=== PATIENT | male | born 1940 | race Caucasian/White ===

== ENCOUNTER 2017-09-03 07:53 | Inpatient (IN) | payer MEDICARE ==
[~2017-09-03] VITALS: Ht 185.4 cm; Wt 69.9 kg
[2017-09-03] VITALS (13 sets, daily range): BP systolic 120–165; BP diastolic 78–98; BMI 17.8
[2017-09-03 08:33] LABS: BASOPHILS 0.1 % (0-2); EOSINOPHILS 0 % (0-7); HEMATOCRIT 49.1 % (42.0-54.0); HEMOGLOBIN 16.5 g/dL (13.5-17.5); IMMATURE GRANULOCYTES 0.2 % (0-5); LYMPHOCYTES 13.4 % (15-50); MCH 32.4 pg (26.0-34.0); MCHC 33.6 g/dL (31.0-37.0); MCV 96.3 fL (80.0-100.0); MEAN PLATELET VOLUME 10.1 fL (7.4-10.4); MONOCYTES 8.1 % (2-11); NEUTROPHILS 78.2 % (40-80); PLATELET COUNT 249 10x3/uL (130-400); RDW 15.9 % (11.5-14.5); WBC 14.7 10x3/uL (4.8-10.8)
[2017-09-03 08:44] LABS: ALBUMIN 4.1 g/dL (3.4-5.0); ALKALINE PHOSPHATASE 73 U/L (46-116); ALT (SGPT) 18 U/L (10-68); CALC OSMOLALITY 289 mosm/kg (275-300); CALCIUM 9.8 mg/dL (8.5-10.1); CARBON DIOXIDE 26.9 mmol/L (21.0-32.0); CHLORIDE - SERUM 102 mmol/L (98-107); CREATININE - SERUM 1.7 mg/dL (0.6-1.3); GLUCOSE 158 mg/dL (74-106); POTASSIUM - SERUM 3.8 mmol/L (3.5-5.1); PROTEIN - SERUM 8.2 g/dL (6.4-8.2); SODIUM 141 mmol/L (136-145); UREA NITROGEN 30 mg/dL (7-18); eGFR NON AFRICAN AMERICAN 42 mL/min (90-120)
[2017-09-03 08:46] LABS: AMYLASE - SERUM 61 U/L (25-115); DIGOXIN 0.59 ng/mL (0.90-2.00); LIPASE 131 U/L (73-393); MAGNESIUM - SERUM 2.2 mg/dL (1.8-2.4); TROPONIN-I < 0.017 ng/mL (0.000-0.060)
[2017-09-03 10:09] LABS: APPEARANCE HAZY (CLEAR); BILIRUBIN NEGATIVE (NEGATIVE); COLOR YELLOW (YELLOW); GLUCOSE NEGATIVE (NEGATIVE); KETONE NEGATIVE (NEGATIVE); NITRITE POSITIVE (NEGATIVE); PROTEIN TRACE mg/dL (NEGATIVE); UROBILINOGEN NORMAL (NORMAL)
[2017-09-03 10:10] LABS: BACTERIA MODERATE /hpf (NONE SEEN); EPITHELIAL CELLS 0-5 /hpf (0-5); MUCUS <1+ /lpf (NONE SEEN); RED CELLS - URINE 0-5 /hpf (0-5); WHITE CELLS - URINE >50 /hpf (0-5)
[2017-09-03 12:07] LABS: INR 1.07 (0.85-1.17); PROTIME 13.8 SECONDS (11.6-15.0)
[2017-09-03 12:08] LABS: APTT 34.3 SECONDS (22.8-39.4)
--- NOTE | 2017-09-03 12:30 | NUR ---
PT CAME IN FROM ER VIA STRETCHER. NG TUBE TO RIGHT NARE 16INCH. X-RAY ORDERED TO ASSESS PLACEMENT. R-ARM 20 GAUGE PERIPHERAL IV WITH BANABAG INFUSING. CURRENTLY ON ROOM AIR O2 SAT OF 96%. ORAL TEMP 98.0, HR 102, BP 165/89. CONTRACTURE ON LEFT HAND. 1/3 OF DIAPHRAM PARALIZED PEP PATIENT STATEMENT. LUNGS ARE CLEAR. BS HYPOACTIVE X 4 QUADRANTS. PT REPORTS PAIN 4/10 ON ABDOMEN. BED LOW POSITON, CALL LIGHT IN REACH. WILL CONTINUE TO MONITOR.
--- NOTE | 2017-09-03 13:00 | NUR ---
16F NIETO PLACED PER ORDER USING STERILE TECHNIQUE. ENTIRE CONTENTS OF PACKAGE UTILIZED. WILL CONTINUE TO MONITOR.
[2017-09-03] MEDS ORDERED: PLAVIX75 MG PO (13:36)
[2017-09-03] MEDS ORDERED: FLOMAX0.4 MG (13:37)
[2017-09-03] MEDS ORDERED: SUPER B COMPLE150 MG PO (13:39)
[2017-09-03] MEDS ORDERED: LANOXIN250 MCG PO (13:40)
--- NOTE | 2017-09-03 14:35 | NUR ---
#16 NG TUBE INSERTED RIGHT NARE FIRST ATTEMPT WITH EXPLANATION TO PATIENT OF PROCEDURE WELL HIS ROLE TO CONTRIBUTING TO THE EASE OF THE INSERTION. PLACEMENT WAS CHECKED BY DR. BALTAZAR AND MYSELF BY HEARING AIR OVER THE EPIGASTRIUM WITH A STETHOSCOPE, GASTRIC CONTENT RETURN, AND ABSENCE OF BUBBLING WITH END OF TUBE SUBMERGED IN CUP OF WATER. TUBE CONNECTED TO INTERMITTENT WALL SUCTION WITH BRIGHT RED GASTRIC CONTENT NOTED. PATIENT CLEANED UP, GOWN CHANGED, AND A DRIP PAD PLACED UNDER THE NOSE LOOSLY TO CATCH DRIPPING FROM NARE. TUBE SECURED WITH NG TUBE ATTACHMENT DEVICE. PATIENT AND ATTENDING NURSE CAUTIONED TO CHECK FREQUENTLY TO ENSURE NOT PRESSING THE END OF THE NOSE. 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 TUBE CONNECTED TO INTERMITTENT SUCTION AND FOR HOW HE CAN ASSIST WITH THE PROCEDURE.
--- NOTE | 2017-09-03 15:03 | NUR ---
CONSENT FORMS SIGNED FOR PROCEDURE. PRE-OP MEDS GIVEN. PT LEFT FLOOR VIA BED AT THIS TIME.
--- NOTE | 2017-09-03 18:15 | NUR ---
PT ARRIVED TO ROOM VIA BED. PT AROUSABLE, ANSWERS APPROPRIATELY. ON 2L NC, SATS 96%. BP 128/94. HR 122 SINUS TACH. HAS NGT TO RIGHT NARE. PT HAS LEFT SUBCLAVIAN CENTRAL LINE, SL. ALSO PIV TO RIGHT FOREARM. SL. NIETO CATHETER. DARK YELLOW URINE. PT HANDS AND FEET COLD TO TOUCH. WEAK PULSES. DR LICEA IN TO SEE PATIENT. EKG OBTAINED PER REQUEST. WILL BE CONSULTING CARDIOLOGY. PT HAS CARDIAC HX. VERY AUDIBLE MURMUR NOTED.
--- NOTE | 2017-09-03 19:26 | NUR ---
SPOKE WITH DR DALEY. REVIEWED VS AND EKG. ASKED FOR 2.5 IV LOPRESSOR.
--- NOTE | 2017-09-03 19:30 | NUR ---
REC'D TO CARE, MONOGRAM MAKER PER FLOWSHEET. PT REMAINS SLEEPY - S/P EXP LAP. ABD DSG INTACT NOTED. IVF INFUSING TO L TLSC, DSG C/D/I. NIETO CATH PATENT AND DRAINING CLEAR, QUITA URINE. REDNESS TO COCCYX NOTED - WILL CONT Q2H TURN SCHEDULE AT MINIMUM. ORAL CARE PROVIDED. PT COOPERATIVE, BACK TO REST EASILY. SOME SHORT PERIODS OF APNEA NOTED - ALARMS ON. C/L IN REACH.
--- NOTE | 2017-09-03 21:30 | NUR ---
DR. BACH NOTIFIED OF HR AND DIG LEVEL. KATY BLOCK REC'D,
[2017-09-03] MEDS ORDERED: FLOMAX0.4 MG PO (21:43)
[2017-09-03] MEDS ORDERED: URECHOLINE25 MG PO (21:44)
--- NOTE | 2017-09-03 21:45 | NUR ---
SPOKE WITH SON, HOME MED REQ REVIEWED AND PHONE PASSWORD SET UP. UPDATE GIVEN AND QUESTIONS ANSWERED.
--- NOTE | 2017-09-03 22:34 | OP ---
PATIENT NAME: DANITA BALTAZAR MEDICAL RECORD: [id number] :40 LOCATION:[facility] D.2302 ADMISSION DATE:09/03/17 SURGEON: CIRILO ARREOLA MD DATE OF OPERATION: 09/03/2017 SURGEON: Cirilo Arreola MD. PREOPERATIVE DIAGNOSES: 1. Cecal volvulus. 2. Acute abdomen with peritonitis. 3. Acute renal failure. 4. Coronary artery disease. 5. Peripheral arterial disease. 6. History of stroke. POSTOPERATIVE DIAGNOSES: 1. Cecal volvulus. 2. Acute abdomen with peritonitis. 3. Acute renal failure. 4. Coronary artery disease. 5. Peripheral arterial disease. 6. History of stroke. PROCEDURES PERFORMED: 1. Exploratory laparotomy. 2. Ileocecectomy. 3. Left subclavian central venous line. ANESTHESIA: General. COMPLICATIONS: None. SPECIMENS: Terminal ileum and cecum. Case was contaminated. ESTIMATED BLOOD LOSS: 120 cc. OPERATIVE COURSE: After consent was obtained, the patient was taken to the operating room and placed in supine position. Next, general anesthesia was given via endotracheal intubation after a timeout was taken to confirm the correct patient and procedure. Left chest was prepped and draped in typical sterile fashion. Local anesthetic was administered. A left subclavian vein was cannulated in the first pass. The guidewire was placed. The needle was removed. The skin incision was made with 11-blade scalpel. The dilator was passed over the wire in a standard Seldinger fashion. The catheter was then passed over the wire in a standard Seldinger fashion. The catheter was secured to the skin with an 0 nylon suture, a Biopatch and sterile Tegaderm dressing. All 3 ports were aspirated and flushed. At this time, the abdomen was then prepped and draped in typical sterile fashion and Ioban dressing was placed. A lower midline incision was made from the umbilicus to the pubic tubercle with a 10-blade scalpel. Dissection continued to the level of the fascia using electrocautery. The fascia was incised with electrocautery. The peritoneum was grabbed with a hemostat; it was incised with Metzenbaum scissors. Once the peritoneal cavity was visualized, remaining portion of the incision was opened OPERATIVE REPORT [id number] DANITA BALTAZAR with electrocautery. There was marked distention of the terminal small bowel. The small bowel was extracorporealized. The cecum was detorsed in a clockwise position from the left upper quadrant towards the pelvis and extracorporealized, releasing the volvulus. Next, at approximately 10 cm terminal ileum, the mesentery was incised using electrocautery and the terminal ileum was ligated using a linear cutting stapler. Once the hepatic flexure was mobilized and the healthy appearing mid ascending colon was identified. A mesenteric window was then created with the electrocautery. Transection was performed with the linear cutting stapler. The mesentery was divided just in the Harmonic scalpel. The terminal ileum, cecum and proximal ascending colon were sent off the field for permanent pathology. Next, the enterotomies where a functional [id number] and end-to-end anastomosis was created. Enterotomies were made using the electrocautery. The common enterotomy was created with the linear cutting stapler. Common enterotomy was closed with a second firing of the linear cutting stapler. The staple line was imbricated using 2-0 Stratafix suture. The mesentery was closed using 3-0 silk suture. The ileocolonic anastomosis was placed in the right upper quadrant. The abdomen was then irrigated with 3 liters of warm normal saline. Careful inspection of the abdomen was performed. The small bowel was run from the ligament of Treitz to the ileocolonic anastomosis. No evidence of bowel injury. No evidence of bleeding. There was no remaining intraabdominal contamination. At this time, the fascia was closed with #1 looped PDS. Skin was closed with calderon. At the end of the case, all needle and instrument counts were correct. No complications occurred. The patient was extubated and transferred to the PACU in stable condition. TRANSINT:[id number] Voice Confirmation ID: [id number] DOCUMENT ID: [id number] CIRILO ARREOLA MD at 2234 CC: [id number] DICTATION DATE: 09/03/17 173 FINISH REPAIRER: 09/03/172003 ADM IN [facility] [address] [id number]
--- NOTE | 2017-09-03 23:16 | NUR ---
REASSESSMENT PER FLOWSHEET, NO ACUTE CHANGES. PT AWAKENS EASILY, VSS. ABD DSG WITHOUT CHANGE. NIETO CATH PATENT. PT DENIES PAIN OR NEEDS. ORAL CARE PROVIDED. ALARMS ON AND C/L IN REACH.
[2017-09-04] VITALS (24 sets, daily range): BP systolic 132–163; BP diastolic 70–114; Ht 185.4 cm; Wt 69.9 kg
--- NOTE | 2017-09-04 01:05 | NUR ---
RESTING QUIETLY, NO SIGN OF DISTRESS. VSS.
--- NOTE | 2017-09-04 03:15 | NUR ---
REASSESSMENT PER FLOWSHEET. PT AWAKE AND ORIENTED - USING GROUP BILLING COORDINATOR FOR C/O INCISIONAL PAIN. ORAL CARE SWABS IN REACH. C/L IN REACH.
[2017-09-04 05:00] LABS: BASOPHILS 0 % (0-2); EOSINOPHILS 0 % (0-7); HEMATOCRIT 41.4 % (42.0-54.0); HEMOGLOBIN 13.4 g/dL (13.5-17.5); IMMATURE GRANULOCYTES 0.1 % (0-5); LYMPHOCYTES 9.6 % (15-50); MCH 32.1 pg (26.0-34.0); MCHC 32.4 g/dL (31.0-37.0); MEAN PLATELET VOLUME 10.3 fL (7.4-10.4); MONOCYTES 8.3 % (2-11); RBC 4.18 10x6/uL (4.20-6.10); RDW 16.5 % (11.5-14.5)
--- NOTE | 2017-09-04 05:00 | NUR ---
COMPLETE BATH AND LINEN CHANGE DONE. NIETO CARE DONE. SMALL PILLOW PROVIDED TO SPLINT ABD WITH COUGHING. PT USING ENGINE WIPER MORPHINE. SWABS FOR ORAL CARE AT BS. ALARMS ON AND C/L IN REACH.
[2017-09-04 05:14] LABS: PLATELET COUNT 188 10x3/uL (130-400); WBC 9.7 10x3/uL (4.8-10.8)
[2017-09-04 05:35] LABS: CALCIUM 7.9 mg/dL (8.5-10.1); CARBON DIOXIDE 23.4 mmol/L (21.0-32.0); CREATININE - SERUM 1.5 mg/dL (0.6-1.3); MAGNESIUM - SERUM 1.9 mg/dL (1.8-2.4)
--- NOTE | 2017-09-04 06:00 | NUR ---
NO VISITORS. PT RESTING QUIETLY WITH EYES CLOSED.
[2017-09-04 06:06] LABS: ANION GAP 13.4 mmol/L (8-16); DIGOXIN 2.41 ng/mL (0.90-2.00); POTASSIUM - SERUM 4.8 mmol/L (3.5-5.1)
--- NOTE | 2017-09-04 07:51 | NUR ---
DR LICEA HERE DR WESLEY HERE AND PT'S SON HERE. PHYSICIANS SPOKE TO PT AND SON AT BS.
--- NOTE | 2017-09-04 11:46 | NUR ---
PT EVAL DONE, ROM AND PARTIAL BATH AND TOTAL CARE TURN. PT NIVIA WELL USING DRUM TENDER FOR PAIN CONTROL.
[2017-09-05] VITALS (13 sets, daily range): BP systolic 112–152; BP diastolic 57–98
[2017-09-05 04:05] LABS: BASOPHILS 0.2 % (0-2); EOSINOPHILS 0 % (0-7); HEMATOCRIT 40.8 % (42.0-54.0); HEMOGLOBIN 12.9 g/dL (13.5-17.5); IMMATURE GRANULOCYTES 0.3 % (0-5); LYMPHOCYTES 11.5 % (15-50); MCH 32.1 pg (26.0-34.0); MCHC 31.6 g/dL (31.0-37.0); MCV 101.5 fL (80.0-100.0); MEAN PLATELET VOLUME 9.6 fL (7.4-10.4); MONOCYTES 8.3 % (2-11); NEUTROPHILS 79.7 % (40-80); PLATELET COUNT 163 10x3/uL (130-400); RBC 4.02 10x6/uL (4.20-6.10); RDW 16.9 % (11.5-14.5); WBC 10.5 10x3/uL (4.8-10.8)
[2017-09-05 04:22] LABS: BILIRUBIN - TOTAL 0.84 mg/dL (0.2-1.3); CALCIUM 7.8 mg/dL (8.5-10.1); CARBON DIOXIDE 25.4 mmol/L (21.0-32.0); CREATININE - SERUM 1.2 mg/dL (0.6-1.3); PROTEIN - SERUM 6.2 g/dL (6.4-8.2); VANCOMYCIN - TROUGH 16.5 ug/mL (10.0-20.0)
[2017-09-05 04:31] LABS: ALBUMIN 2.5 g/dL (3.4-5.0); ANION GAP 12.5 mmol/L (8-16); POTASSIUM - SERUM 3.9 mmol/L (3.5-5.1)
--- NOTE | 2017-09-05 10:05 | NUR ---
NGT CLAMPED AND PO MEDS GIVEN. PT SWALLOWING W/O PROBLEMS.
[2017-09-05 10:10] LABS: APPEARANCE SLT CLOUDY (CLEAR); BILIRUBIN NEGATIVE (NEGATIVE); COLOR YELLOW (YELLOW); GLUCOSE NEGATIVE (NEGATIVE); KETONE MODERATE mg/dL (NEGATIVE); NITRITE NEGATIVE (NEGATIVE); PROTEIN TRACE mg/dL (NEGATIVE); UROBILINOGEN NORMAL (NORMAL)
[2017-09-05 10:11] LABS: RED CELLS - URINE 0-5 /hpf (0-5)
[2017-09-05 10:12] LABS: WHITE CELLS - URINE >50 /hpf (0-5)
[2017-09-05 10:13] LABS: AMORPHOUS SEDIMENT <1+ /lpf (NONE SEEN); BACTERIA FEW /hpf (NONE SEEN)
--- NOTE | 2017-09-05 14:33 | NUR ---
I spoke with patient's son, Dr. Gottliebing, who is a OBGYN at this hospital. He had questions about acute rehab and also shelter for his father. He asked that I not speak with his father today since he was medicated and would not remember speaking with me. Dr. Tan is very concerned about his father and if he will be able to return to his previous level of independence. Patient was living next door to Dr. Tan and his family and Dr. Tan has been providing care to his father. He stated that he and his eldest brother are considering LTC for their father if he is no longer able to live partially independent any longer. We discussed acute rehab and he asked about the [facility]. They are planning to look into filing for Medicaid the patient and would like to speak with a sales representative printing paper for Medicaid at some point. Patient has order to move to medical floor and I told him a rifle case repairer will follow them through his hospitalization. CM to follow.
--- NOTE | 2017-09-05 14:57 | NUR ---
PT UP TO CHAIR WITH PT, VERY DIFFICULT AND TOTAL LIFT. PT LUE CONTRACTURED AND HE PUSHES TO THAT SIDE.
--- NOTE | 2017-09-05 17:23 | NUR ---
REPORT CALLED TO FLOOR NURSE. WILL TRANSPORT TO ROOM 2236. FAMILY NOTIFIED OF ROOM NUMBER.
--- NOTE | 2017-09-05 18:04 | NUR ---
PATIENT TO ROOM AND NGT TO LIWS. NO COMPLAINTS OR PROBLEMS. IV INTACT. BOTTLE HOUSE PUMPER FOR PAIN. ICE CHIPS GIVEN TO PATIENT. FAMILY AT BEDSIDE. CALL LIGHT WITHIN REACH.
--- NOTE | 2017-09-05 19:41 | NUR ---
RECIEVED RESTING IN BED WITH EYES CLOSED. NO S/S OF DISTRESS OBSERVED. EASILY AROUSES TO VERBAL STIMULI. F/C PATENT WITH DARK YELLOW URINE DRAINING TO BEDSIDE DRAINAGE SYSTEM. VG TUBE TO LEFT NARE WITH LOW INTERMITTEN SUCTION. SCVL TO LEFT UPPER CHEST WITH NS INFUSING AT 100CC/HR. ALSO,HAS A RIGHT POSTERIOR FOREARM SL. LUNG SOUNDS CRACKLE THOUGHT OUT ALL LUNG LUTZ AND HAS RALES IN RIGHT MIDDLE AND LOWER LOBES. ABDOMINAL SURGICAL WOUND FROM BELOW NAVAL TO TOP OF PELVIS HAS 9 LATISHA INTACT.NO REDNESS OR DRAINAGE TO SITE OBSERVED. TELEMETRY IN PLACE AND FUNCTIONING PROPERLY. PULSE BOUNDING AND 111. LEFT HAND CONTRACTED. O2@2 LITERS PER N/C. RESPIRATIONS EVEN AND UNLABORES AT 18.
[2017-09-06] VITALS: BP 127/76; BP 146/77
[2017-09-06 04:00] VITALS: BP 146/77
--- NOTE | 2017-09-06 07:00 | NUR ---
REPORT RECEIVED, ASSUMED CARE OF PT. RESTING, LETHARGIC, ANSWERS QUESTIONS APPROPRIATELY. NGT TO L INTERMMITENT WALL SUCTION IN PLACE. NIETO CATHETER IN PLACE. L SUBCLAVIAN IV INFUSING FLUIDS ORDERED, PATENT, DRSG C/D/I. R FOREARM IV SALINE LOCKED, DRSG C/D/I. VETERINARY ATTENDANT ORDERED. 2L O2 VIA NASAL CANNULA IN PLACE. NO NEEDS VOICED AT THIS TIME. BED IN LOWEST POSITION, SIDE RAILS UP X 2, CALL LIGHT WITHIN REACH.
[2017-09-06 08:30] VITALS: BP 108/78
--- NOTE | 2017-09-06 08:45 | NUR ---
NGT DISCONTINUED ORDERED, PT TOLERATED WITH MINIMAL DISCOMFORT.
[2017-09-06 09:19] LABS: BASOPHILS 0.2 % (0-2); EOSINOPHILS 0.3 % (0-7); HEMATOCRIT 39.4 % (42.0-54.0); HEMOGLOBIN 12.8 g/dL (13.5-17.5); IMMATURE GRANULOCYTES 0.2 % (0-5); LYMPHOCYTES 9.6 % (15-50); MCH 32.2 pg (26.0-34.0); MCHC 32.5 g/dL (31.0-37.0); MEAN PLATELET VOLUME 9.5 fL (7.4-10.4); MONOCYTES 12.1 % (2-11); NEUTROPHILS 77.6 % (40-80); PLATELET COUNT 169 10x3/uL (130-400); RBC 3.97 10x6/uL (4.20-6.10); RDW 16.6 % (11.5-14.5); WBC 9.8 10x3/uL (4.8-10.8)
[2017-09-06 09:25] LABS: MCV 99.2 fL (80.0-100.0)
[2017-09-06 09:37] LABS: ALBUMIN 2.3 g/dL (3.4-5.0); ALKALINE PHOSPHATASE 71 U/L (46-116); ALT (SGPT) 15 U/L (10-68); BILIRUBIN - TOTAL 0.78 mg/dL (0.2-1.3); CALC OSMOLALITY 286 mosm/kg (275-300); CALCIUM 8.2 mg/dL (8.5-10.1); CARBON DIOXIDE 23.3 mmol/L (21.0-32.0); CHLORIDE - SERUM 109 mmol/L (98-107); CREATININE - SERUM 0.9 mg/dL (0.6-1.3); GLUCOSE 92 mg/dL (74-106); POTASSIUM - SERUM 3.4 mmol/L (3.5-5.1); PROTEIN - SERUM 6.1 g/dL (6.4-8.2); SODIUM 144 mmol/L (136-145); UREA NITROGEN 12 mg/dL (7-18); eGFR NON AFRICAN AMERICAN 87 mL/min (90-120)
[2017-09-06 12:01] VITALS: BP 124/70
--- NOTE | 2017-09-06 13:40 | NUR ---
Patient Name: DANITA BALTAZAR Admission Status: ER Accout number: [id number] Admission Date: 09-03-2017 : 1940 Admission Diagnosis:UNSPECIFIED ABDOMINAL PAIN Attending: KATYA LICEA Current LOS: 3 Anticipated DC Date: 09-10-2017 Planned Disposition: Inpatient Rehab Primary Insurance: MEDICARE A & B Discharge Planning Comments: CM MET WITH DR. BALTAZAR (PATIENTS SON) REGARDING D/C NEEDS AND PLANS. DR. BALTAZAR STATED HIS DAD LIVES IN THEIR GUEST HOME AND THERE ARE NO STEPS OR STAIRS. THE FAMILY HAS RECENTLY MOVED HERE AND PATIENT DOES NOT HAVE A PCP AT THIS TIME AND DR. BALTAZAR IS HOPING FOR DR. LICEA TO ACCEPT HIS DAD HIS PATIENT. IP REHAB IS WHAT IS WANTED AND IF NOT ACCEPTED THEY WILL DECIDE ON SNF. CM WILL CONTINUE TO FOLLOW PATIENT WITH D/C NEEDS AND PLANS. PCP NONE (POSSIBLE DR. LICEA) [facility] [phone] ENMA BALTAZAR (SON) [phone] Money Room Teller: Madeline Tesfaye How many steps to enter\exit or inside your home? 0 0 * PCP DR. LICEA (IN THE WORKS PER DR. BALTAZAR) 0 * Pharmacy [facility] 0 * Preadmission Environment Home Alone 0 * List name and contact numbers for known caregivers / representatives who currently or will assist patient after discharge: ENMA BALTAZAR (SON) [phone] 0 * Community resources currently utilized None 0 * Additional services required to return to the preadmission environment? Yes 0 * Can the patient safely return to the preadmission environment? No 0 * Has this patient been hospitalized within the prior 30 days at any hospital? No 0 Grand Total: 0
--- NOTE | 2017-09-06 14:30 | NUR ---
PT STATING INAPPROPRIATE GESTURES ASKING FOR SEXUAL FAVORS. RE-ORIENTED TO SITUATION AND HOW THAT WAS INAPPROPRIATE, PT STOPPED ASKING.
--- NOTE | 2017-09-06 15:06 | NUR ---
NUTRITION F/U PT REMAINS NPO. SIPS AND CHIPS, POPSICLES. WILL PROVIDE DIET WHEN ADVANCED AND MONITOR PO INTAKE. RD FOLLOWING
--- NOTE | 2017-09-06 16:01 | NUR ---
PT RESTING WITH EYES SHUT, EASILY AROUSED. NO NEEDS VOICED AT THIS TIME. BED IN LOWEST POSITION, SIDE RAILS UP X 2, CALL LIGHT WITHIN REACH.
[2017-09-06 16:13] VITALS: BP 155/71
--- NOTE | 2017-09-06 16:21 | NUR ---
Rehab Note- Acute Rehab Prescreen order received. According to Physical therapy notes the patient has been low level physically prior to this hospitalization and not participating with therapy, the patient will have to participate in the required 3hrs of therapy a day for acute inpatient rehab. Will follow at this time. Thank you for this referral! Natalie Huber RN Clinical Liaison, [facility] Rehab
--- NOTE | 2017-09-06 17:45 | NUR ---
WALKED IN TO PT'S ROOM AND HE WAS TOUCHING HIMSELF STATING "I DON'T HAVE A WOMAN LIKE YOU TO DO IT FOR ME." SPOKE WITH SON, DR. BALTAZAR EARLIER, STATES "PT SOMETIMES DRINKS A LOT AND HE GETS LIKE THAT WHEN HE HASN'T HAD ANYTHING TO DRINK." DR. ANUJA HUTCHINSOND.
--- NOTE | 2017-09-06 18:42 | NUR ---
SON NOTIFIED OF BEHAVIORS AND AT BEDSIDE.
[2017-09-06 19:49] VITALS: BP 153/82
[2017-09-07] VITALS: BP 158/60
--- NOTE | 2017-09-07 04:30 | NUR ---
LAP CUTTER CALLED AND SAID PATIENT CONVERTED TO AFIB, HEART RATE 120.
--- NOTE | 2017-09-07 04:40 | NUR ---
CHECKED ORDERS, PATIENT HAS AN ORDER FOR AN AMIODORONE DRIP THAT HAS NOT BEEN STARTED. NOTIFIED STRATEGIC PARTNERSHIP SPECIALIST.
--- NOTE | 2017-09-07 04:59 | NUR ---
CALLED REPORT TO BRIE LANDRY ON MED2 UNIT.
--- NOTE | 2017-09-07 05:00 | NUR ---
CALLED PATIENT'S EMERGENCY CONTACT ENMA BALTAZAR, NOTIFIED HIM THAT PATIENT IS MOVING TO 2122.
[2017-09-07 05:11] VITALS: BP 147/70
--- NOTE | 2017-09-07 05:15 | NUR ---
ARRIVED TO FLOOR VIA BED, ORIENTED TO UNIT. 116 UCAF WITH PVCS. CALL LIGHT IN REACH. BED ALARM ON.
--- NOTE | 2017-09-07 05:16 | NUR ---
PATIENT ARRIVED FROM MED-SURG VIA BED, ALERT. CALL LIGHT IN REACH.
--- NOTE | 2017-09-07 05:31 | NUR ---
SPOKE WITH . NOTIFIED HIM OF THE INCIDENT.
--- NOTE | 2017-09-07 07:20 | NUR ---
ASSESSMENT COMPLETED. TELEMERTY SHOWS AFIB AT 76. LEFT SUB CLAVIAN TRIPLE LUMAN WITH NS AT 50, CORDARONE 33CC HR AND MORPHINE DRIP AT 1MG EVERY 10 MIN WITH A 10MG LOCK OUT. NIETO CATH TO GRAVITY. MID LINE INCISION TO ABD. LEFT HAND CONTRACTED. ALERT, DENIES ANY NEEDS. SR UP WITH CALL LIGHT IN REACH. BED ALAM ON. WILL MONITOR
[2017-09-07 08:02] VITALS: BP 125/67
--- NOTE | 2017-09-07 10:26 | NUR ---
PT RESTING. ANSWERING QUESTIONS APPROPIATELY. DR. OLVERAREAD HERE. PT IS IN SR WITH PACS AND OCC PVCS. ORDER FROM DR. DALEY TO HOLD NOON DIG. WILL CONTINUE TO MONITOR.
[2017-09-07 12:00] VITALS: BP 141/62
[2017-09-07 16:00] VITALS: BP 101/77
--- NOTE | 2017-09-07 18:14 | NUR ---
LYING QUIETLY. TOLORATED LIQUID DIET OK. MORPHINE LINE AND FRAME POLER IN USE. NO NEEDS VOICED
[2017-09-07 19:00] VITALS: BP 136/68
--- NOTE | 2017-09-07 19:37 | NUR ---
PT SITTING IN BED HOB 35. PT C/O PAIN, ORIENTED PT TO AUDITING SPECIALIST. REPOSITIONED PT AND GAVE PILLOW FOR ABD SUPPORT. PT DENIES ANY OTHER NEEDS. PT STATES PAIN AT 5/10 IN MIDDLE ABD. ALL ACROSS. 16.7ML/HR OF NEXTERONE AND 50ML OF NS INFUSING TO LEFT SUB CLAVIAN. PT DENIES ANY OTHER NEEDS. PT DECLINED A BOLUS. PT HAS NO S/S OF DISTRESS. BED LOW AND CALL LIGHT IN REACH. WILL CPOC
--- NOTE | 2017-09-07 22:47 | NUR ---
REPOSITIONED PT TO RIGHT SIDE/ PULLED UP IN BED. PT NIETO OUTPUT 0 DARK YELLOW URINE. PT C/O NAUSEA. ZOFRAN GIVEN. PT DENIES ANY OTHER NEEDS. NO S/S OF DISTRESS. WILL CPOC
[2017-09-08] VITALS: BP 151/72
--- NOTE | 2017-09-08 | NUR ---
REPOSITIONED PT. PT FLACCID ON LEFT SIDE. PT HAS NS INFUSING AT 50 AND NEXTARONE INFUSING AT 12.7 TO LEFT SUBCLAVIN. NOURISHMENT OFFERED. PT DENIES ANY NEEDS. SCDS ON BILATERAL. NO S/S OF DISTRESS. BED LOW CALL LIGHT IN REACH. ADMINISTRATIVE AIDE PUMP AVALIBLE. PT AWARE AND ORIENTATED. WILL CPOC
[2017-09-08 04:00] VITALS: BP 141/67
--- NOTE | 2017-09-08 04:30 | NUR ---
STOPED THE NEXTARONE FROM INFUSING, FLUSHED AND S/L LINE. OFFERED NOURISHMENT. PT DENIES ANY NEEDS. NO S/S OF DISTRESS. WILL CPOC
--- NOTE | 2017-09-08 06:08 | NUR ---
PT RESTING IN BED. VANC INFUSING TO LEFT SUB AT 100. PT ASKS FOR SOME JUICE. PT GIVEN JUICE. PT DENIES ANY OTHER NEEDS. SCDS ON BILATERAL. NO S/S OF DISTRESS. WILL CPOC
--- NOTE | 2017-09-08 07:28 | NUR ---
AM ROUNDS- PT IN BED, DENIES ANY NEEDS AT THIS TIME. RESP EVEN AND UNLABORED, LT CVL INFUSING NS AT 50CC/HR, AND MORPHINE TRIMMING OPERATOR 1MG Q10MIN Q4HR LOCKOUT 10MG. BED LOW AND WHEELS LOCKED, BEDSIDE RAILS X2, SCD'S ON BILAT, CALL LIGHT IN REACH, NAD NOTED, WILL CONTINUE TO MONITOR.
[2017-09-08 08:18] LABS: CALC OSMOLALITY 280 mosm/kg (275-300); CALCIUM 8.3 mg/dL (8.5-10.1); CHLORIDE - SERUM 101 mmol/L (98-107); CREATININE - SERUM 0.9 mg/dL (0.6-1.3); GLUCOSE 134 mg/dL (74-106); SODIUM 141 mmol/L (136-145); UREA NITROGEN 6 mg/dL (7-18); eGFR NON AFRICAN AMERICAN 87 mL/min (90-120)
[2017-09-08 08:19] LABS: CARBON DIOXIDE 30.3 mmol/L (21.0-32.0); POTASSIUM - SERUM 2.8 mmol/L (3.5-5.1)
[2017-09-08 08:22] LABS: BASOPHILS 0.1 % (0-2); EOSINOPHILS 1.2 % (0-7); HEMATOCRIT 34.4 % (42.0-54.0); HEMOGLOBIN 11.7 g/dL (13.5-17.5); IMMATURE GRANULOCYTES 0.3 % (0-5); LYMPHOCYTES 9.6 % (15-50); MCH 32.1 pg (26.0-34.0); MEAN PLATELET VOLUME 10.7 fL (7.4-10.4); MONOCYTES 12.6 % (2-11); NEUTROPHILS 76.2 % (40-80); PLATELET COUNT 197 10x3/uL (130-400); RBC 3.65 10x6/uL (4.20-6.10); RDW 15.4 % (11.5-14.5); WBC 9.2 10x3/uL (4.8-10.8)
[2017-09-08 08:25] LABS: MCV 94.2 fL (80.0-100.0)
[2017-09-08 08:28] VITALS: BP 113/77
--- NOTE | 2017-09-08 08:57 | NUR ---
1514- PAGED DR. WALDROP, WAITING ON HIM TO CALL BACK [phone]- RECEIVED CALL BACK FROM DR. WALDROP, INFOREMED HIM OF CRITICAL K OF 2.8. DR. WALDROP STATED TO PUT PT ON EP.
--- NOTE | 2017-09-08 09:23 | NUR ---
MEDS CRUSHED AND GAVE WITH APPLE SAUCE, ALSO ADMINISTERERED 20MEQ OF K FOR LOW K OF 2.8. PT DENIES ANY NEEDS AT THIS TIME. CALL LIGHT IN REACH, NAD NOTED, WILL CONTINUE TO MONITOR.
--- NOTE | 2017-09-08 09:44 | NUR ---
CALLED PHARMACY AND ASKED FOR URECHOLINE. SPOKE WITH VERNON, SHE STATED THAT SHE WOULD BRING IT UP SHORTLY.
[2017-09-08 11:51] VITALS: BP 134/71
--- NOTE | 2017-09-08 12:45 | NUR ---
WENT TO PT'S ROOM TO SEE IF PT HAD TAKEN HIS K. PT HAS NOT DRINKED MUCH OF THE K. WILL WAIT TO SEE WHAT THE LAB RESULT IS AT 1330. AND IF STILL LOW, WILL DO K RIDERS INSTEAD. PT IN BED, DENIES ANY NEEDS AT THIS TIME. CALL LIGHT IN REACH, NAD NOTED, WILL CONTINUE TO MONITOR.
--- NOTE | 2017-09-08 13:50 | NUR ---
K LAB CAME BACK 2.4. LOWER THAN AM LABS. WILL START K RIDERS PER PROTOCOL. PT IN BED, DENIES ANY NEEDS AT THIS TIME. REPOSITIONED PT IN BED, CALL LIGHT IN REACH, NAD NOTED, WILL CONTINUE TO MONITOR.
[2017-09-08 15:59] VITALS: BP 146/71
[2017-09-08 19:00] VITALS: BP 143/69
--- NOTE | 2017-09-08 19:00 | NUR ---
RECEIVED REPORT AND ASSUMED PT CARE FROM DAY SHIFT RN @ THIS TIME.
[2017-09-09] VITALS: BP 121/61
--- NOTE | 2017-09-09 01:04 | NUR ---
PT POTASSIUM RESULTS - 3.2. PER ELECTROLYTE PROTOCOL POTASSIUM REPLACEMENT STARTED VIA LEFT CHEST SUBCLAVIAN CENTRAL LINE WITH KCL INFUSING AT 10 MEQ/HR. PT TOLERATING WELL. WILL MONITOR PT ON TELEMETRY.
[2017-09-09 04:03] VITALS: BP 133/62
[2017-09-09 06:36] LABS: BASOPHILS 0.2 % (0-2); EOSINOPHILS 0.8 % (0-7); HEMATOCRIT 35.8 % (42.0-54.0); IMMATURE GRANULOCYTES 0.5 % (0-5); LYMPHOCYTES 8.3 % (15-50); MCH 31.8 pg (26.0-34.0); MCHC 33.5 g/dL (31.0-37.0); MEAN PLATELET VOLUME 9.6 fL (7.4-10.4); MONOCYTES 7.9 % (2-11); NEUTROPHILS 82.3 % (40-80); PLATELET COUNT 218 10x3/uL (130-400); RBC 3.77 10x6/uL (4.20-6.10); RDW 15.7 % (11.5-14.5)
[2017-09-09 06:38] LABS: WBC 11.8 10x3/uL (4.8-10.8)
[2017-09-09 06:48] LABS: ALBUMIN 2.1 g/dL (3.4-5.0); ALKALINE PHOSPHATASE 49 U/L (46-116); ALT (SGPT) 21 U/L (10-68); CALCIUM 7.9 mg/dL (8.5-10.1); CARBON DIOXIDE 30.9 mmol/L (21.0-32.0); CHLORIDE - SERUM 106 mmol/L (98-107); GLUCOSE 113 mg/dL (74-106); MAGNESIUM - SERUM 1.5 mg/dL (1.8-2.4); PROTEIN - SERUM 5.4 g/dL (6.4-8.2); SODIUM 142 mmol/L (136-145); eGFR NON AFRICAN AMERICAN 77 mL/min (90-120)
[2017-09-09 06:49] LABS: CALC OSMOLALITY 282 mosm/kg (275-300); POTASSIUM - SERUM 4.3 mmol/L (3.5-5.1); UREA NITROGEN 9 mg/dL (7-18)
[2017-09-09 06:51] LABS: PHOSPHOROUS 1.4 mg/dL (2.5-4.9)
[2017-09-09 08:00] VITALS: BP 99/63
--- NOTE | 2017-09-09 09:57 | NUR ---
TELEMETRY SR. IV PATENT. NIETO INTACT. UP TO CHAIR WITH PT ASSIST. WILL CONT. PLAN OF CARE.
[2017-09-09 12:00] VITALS: BP 133/70
--- NOTE | 2017-09-09 15:03 | NUR ---
REPOSITIONED FOR COMFORT BED ALRM ON. CALL LIGHT IN REACH. WILL CONT. PLAN OF CARE.
[2017-09-09 20:26] VITALS: BP 137/71
--- NOTE | 2017-09-09 21:00 | NUR ---
PT'S PHOS RESULTS - 2.1. PER ELECTROLYTE PROTOCOL NEUTRA PHOS 1 PACKET TO BE GIVEN Q4H X3 DOSES. WILL TREAT AND RECHECK LEVEL IN AM.
[2017-09-10] VITALS (7 sets, daily range): BP systolic 105–168; BP diastolic 55–76
[2017-09-10 06:22] LABS: BASOPHILS 0.2 % (0-2); EOSINOPHILS 2.3 % (0-7); HEMATOCRIT 31.7 % (42.0-54.0); HEMOGLOBIN 10.6 g/dL (13.5-17.5); IMMATURE GRANULOCYTES 0.6 % (0-5); LYMPHOCYTES 10.2 % (15-50); MCH 31.7 pg (26.0-34.0); MCHC 33.4 g/dL (31.0-37.0); MCV 94.9 fL (80.0-100.0); MEAN PLATELET VOLUME 10.3 fL (7.4-10.4); MONOCYTES 8.9 % (2-11); NEUTROPHILS 77.8 % (40-80); PLATELET COUNT 233 10x3/uL (130-400); RBC 3.34 10x6/uL (4.20-6.10); WBC 10.5 10x3/uL (4.8-10.8)
[2017-09-10 06:34] LABS: CALC OSMOLALITY 279 mosm/kg (275-300); CALCIUM 7.7 mg/dL (8.5-10.1); CARBON DIOXIDE 31.7 mmol/L (21.0-32.0); CHLORIDE - SERUM 104 mmol/L (98-107); CREATININE - SERUM 0.8 mg/dL (0.6-1.3); GLUCOSE 91 mg/dL (74-106); PHOSPHOROUS 2.1 mg/dL (2.5-4.9); SODIUM 141 mmol/L (136-145); UREA NITROGEN 9 mg/dL (7-18); VANCOMYCIN - TROUGH 22.8 ug/mL (10.0-20.0); eGFR NON AFRICAN AMERICAN > 90 mL/min (90-120)
[2017-09-10 06:36] LABS: POTASSIUM - SERUM 3.1 mmol/L (3.5-5.1)
--- NOTE | 2017-09-10 10:19 | NUR ---
ABDOMEN DISTENDED. ORDER FOR NG TUBE TO BE INSERTED. 16 SALEM SUMP INSERTED THRU R NARES BY FRANNIE BARRAGAN. NO RESISTANCE WITH INSERTION. TUBE SECURED AND HOOKED TO LOW INTERMITTENT SUCTION. 750 CC OBTAINED. PT NIVIA WELL. MONITOR SHOWS ST WITH RATE OF 122.
--- NOTE | 2017-09-10 16:21 | NUR ---
Patient Name: DANITA BALTAZAR Encounter No: [id number] : 1940 Primary Insurance: MEDICARE A & B Anticipated DC Date: 09-10-2017 Planned Disposition: Inpatient Rehab External Planned Provider: [facility] DCP follow-up note: CM RECEIVED ORDER FOR DISCHARGE PLANNING AND REHAB PLACEMENT WHEN CLEARED BY SURGERY AND PULMONOLOGY. CM REVIEWED CHART, CASE MANAGEMENT NOTES REPORT PT'S SON WANTED PT CONSIDERED FOR INPATIENT REHAB PRIOR TO CONSIDERING CUSTODIAL FACILITY FOR REHAB. CM MET WITH PT IN ROOM TO DISCUSS DISCHARGE PLANNING AND NEEDS. PT IS WILLING FOR REHAB. CM DISCUSSED PT'S THERAPY NOTES WHICH INDICATE MAX ASSISTANCE WITH PT BEING UP TO CHAIR TODAY. CM ASKED PT IF HE THINKS HE CAN PARTICIPATE IN THREE HOURS OF PROGRESSIVER THERAPY PER DAY, PT KNOWS HE NEEDS REHAB, IS NOT SURE AND WOULD LIKE CM TO SPEAK TO HIS SON, ENMA, AND WHATEVER ENMA SAYS, PT REPORTS HE WILL DO. CM LEFT COPY OF CUSTODIAL FACILITIES THAT ARE AVAILABLE LOCALLY AND IN THE SURROUNDING [place] ARE[place] ALONG WITH CM CONTACT INFORMATION. CM CALLED PT'S SON, DR. ENMA BALTAZAR, , LEFT MESSAGE ASKING FOR RETURN CALL TO DISCUSS REHAB PLACEMENT AND DISCHARGE PLANNING. CM WAITING ON RETURN CALL FROM PT'S SON, DR. ENMA BALTAZAR, TO DISCUSS REHAB PLACEMENT AND DISCHARGE PLANNING. Alvarado Rutherford, CASE MANAGEMENT
--- NOTE | 2017-09-10 19:36 | NUR ---
PATIENT IS ALERT, WATCHING TV. DENIES ANY NEEDS AT THIS TIME, CALL LIGHT IN REACH. WILL CONTINUE TO MONITOR.
--- NOTE | 2017-09-11 02:44 | NUR ---
PATIENT ACCIDENTLY PULLED OUT NG TUBE, NEW NG TUBE PLACED. PLACEMENT WAS VERIFIED WITH AUSCULATION AND ASPIRATION. CALL LIGHT IN REACH.
[2017-09-11 04:32] VITALS: BP 142/65
--- NOTE | 2017-09-11 04:37 | NUR ---
PT RESTING COMFORTABLY, EYES CLOSED, RESPIRATIONS EVEN AND UNLABORED. PT HAS BEEN AWAKE OFF AND ON DURING SHIFT, IS ALERT AND ORIENTED. NGT HAD TO BE REPLACED THE FIRST ONE WAS ACCIDENTALLY DISLODGED/PULLED OUT BY THE CRATE REPAIRER GIVING PT A BATH. NEW NGT REPLACED WITHOUT DIFFICULTY, PT TOLERATED PROCEDURE WELL. TUBE WAS REINSERTED BY ROXANNE BARRAGAN, AND MAE BAIRD. TUBE PLACEMENT CHECKED BY AUSCULTATION AND ASPIRATION. CONTINUE TO MONITOR PT CLOSELY. BED LOW, CALL LIGHT IN REACH, SIDE RAILS X 2, HOB 35-40 DEGREES, AMIE MAT IN PLACE AND ON.
[2017-09-11 05:08] LABS: BASOPHILS 0.2 % (0-2); EOSINOPHILS 1.7 % (0-7); HEMATOCRIT 32.4 % (42.0-54.0); HEMOGLOBIN 10.8 g/dL (13.5-17.5); IMMATURE GRANULOCYTES 0.5 % (0-5); LYMPHOCYTES 9.3 % (15-50); MCH 31.9 pg (26.0-34.0); MCHC 33.3 g/dL (31.0-37.0); MCV 95.6 fL (80.0-100.0); MEAN PLATELET VOLUME 9.9 fL (7.4-10.4); MONOCYTES 7.7 % (2-11); NEUTROPHILS 80.6 % (40-80); RBC 3.39 10x6/uL (4.20-6.10); RDW 15.7 % (11.5-14.5); WBC 10.7 10x3/uL (4.8-10.8)
[2017-09-11 05:19] LABS: PLATELET COUNT 289 10x3/uL (130-400)
[2017-09-11 05:38] LABS: CALC OSMOLALITY 271 mosm/kg (275-300); CALCIUM 8.2 mg/dL (8.5-10.1); CARBON DIOXIDE 33.3 mmol/L (21.0-32.0); CHLORIDE - SERUM 99 mmol/L (98-107); GLUCOSE 103 mg/dL (74-106); MAGNESIUM - SERUM 2.1 mg/dL (1.8-2.4); POTASSIUM - SERUM 3.2 mmol/L (3.5-5.1); SODIUM 136 mmol/L (136-145); eGFR NON AFRICAN AMERICAN 77 mL/min (90-120)
[2017-09-11 05:43] LABS: UREA NITROGEN 12 mg/dL (7-18)
[2017-09-11 08:13] VITALS: BP 115/49
--- NOTE | 2017-09-11 09:44 | NUR ---
Patient Name: DANITA BALTAZAR Encounter No: [id number] : 1940 Primary Insurance: MEDICARE A & B Anticipated DC Date: 09-10-2017 Planned Disposition: Inpatient Rehab External Planned Provider: [facility] DCP follow-up note: CM CALLED PT'S SON, DR. ENMA BALTAZAR, , LEFT MESSAGE ASKING FOR RETURN CALL TO DISCUSS REHAB PLACEMENT AND DISCHARGE PLANNING. CM WAITING ON RETURN CALL FROM PT'S SON, DR. ENMA BALTAZAR, TO DISCUSS REHAB PLACEMENT AND DISCHARGE PLANNING. Alvarado Rutherford, CASE MANAGEMENT
[2017-09-11 12:14] VITALS: BP 143/62
--- NOTE | 2017-09-11 14:28 | NUR ---
TELEMTRY SR. NG TUBE INTACT. IV PATENT. UP TO CHAIR WITH PT ASSIST. WILL CONT. PLAN OF CARE.
--- NOTE | 2017-09-11 15:57 | NUR ---
NG TUBE DCD.
--- NOTE | 2017-09-11 16:00 | NUR ---
TR BAND DCD WITHOUT BLEEDING OR HEMATOMA NOTED.
[2017-09-11 17:13] VITALS: BP 151/86
[2017-09-11 20:12] VITALS: BP 153/95
--- NOTE | 2017-09-11 22:51 | NUR ---
PT LYING IN BED HOLDING HIS EMESIS BAG. PT STATES HE IS NAUSEATED, CALL LIGHT GIVEN BACK TO PT HE HAD DROPPED IT ON THE FLOOR. PT DEMONSTRATES MILD CONFUSION, HE HAS REMOVED HIS GOWN AND ALL THE TOP LINENS FROM HIS BED. I ALERTED PTS NURSE SO SHE COULD ASSIST PT FURTHER. CONTINUE TO MONITOR CLOSELY.
[2017-09-12 00:36] VITALS: BP 109/76
[2017-09-12 04:20] VITALS: BP 136/67
[2017-09-12 05:52] LABS: BASOPHILS 0.2 % (0-2); HEMATOCRIT 37.3 % (42.0-54.0); HEMOGLOBIN 12.6 g/dL (13.5-17.5); IMMATURE GRANULOCYTES 0.8 % (0-5); LYMPHOCYTES 8.6 % (15-50); MCH 31.7 pg (26.0-34.0); MCHC 33.8 g/dL (31.0-37.0); MEAN PLATELET VOLUME 10.1 fL (7.4-10.4); MONOCYTES 7.8 % (2-11); NEUTROPHILS 81.6 % (40-80); RBC 3.97 10x6/uL (4.20-6.10); RDW 15.3 % (11.5-14.5)
[2017-09-12 06:00] LABS: PLATELET COUNT 375 10x3/uL (130-400); WBC 15.2 10x3/uL (4.8-10.8)
[2017-09-12 06:17] LABS: CALC OSMOLALITY 270 mosm/kg (275-300); CALCIUM 8.6 mg/dL (8.5-10.1); CARBON DIOXIDE 32.4 mmol/L (21.0-32.0); CHLORIDE - SERUM 96 mmol/L (98-107); CREATININE - SERUM 0.9 mg/dL (0.6-1.3); GLUCOSE 109 mg/dL (74-106); MAGNESIUM - SERUM 2.4 mg/dL (1.8-2.4); POTASSIUM - SERUM 3.6 mmol/L (3.5-5.1); SODIUM 134 mmol/L (136-145); eGFR NON AFRICAN AMERICAN 87 mL/min (90-120)
[2017-09-12 06:26] LABS: UREA NITROGEN 17 mg/dL (7-18)
--- NOTE | 2017-09-12 06:32 | NUR ---
LEFT CVL DRESSING CHANGED. PATIENT TOLERATED WELL, CALL LIGHT IN REACH.
--- NOTE | 2017-09-12 06:38 | NUR ---
PATIENT IS ALERT IN BED, CVL DRESSING CHANGED. CALL LIGHT IN REACH.
[2017-09-12 08:14] VITALS: BP 171/78
--- NOTE | 2017-09-12 10:23 | NUR ---
Rehab has been following this patient for acute inpatient rehab since 09/06/17. He has not been able to ambulate and is max assist for transfers. Today he feels he can participate in the required 3 hrs of therapy. Called and discussed with Herberth Ace PT. Herberth will notify rehab of patient's progress after todays session. Discussed the patient with the CM Shimon Rutherford. Chelsy Peter RN Clinical Liaison, rehab
--- NOTE | 2017-09-12 10:52 | NUR ---
Patient Name: DANITA BALTAZAR Encounter No: [id number] : 1940 Primary Insurance: MEDICARE A & B Anticipated DC Date: 09-13-2017 Planned Disposition: LONGTERM FACILITY External Planned Provider: [facility], MEDICARE REHAB BED DCP follow-up note: CM SPOKE TO PT'S SON, DR. BALTAZAR AT [facility], DISCUSSED REHAB AND LONGTERM REHAB OPTIONS. DR BALTAZAR PREFERS INPATIENT REHAB, IF PT IS NOT ABLE, HE WANTS REHAB FOR PT AT [facility]. CHOICE SIGNED, IMPORTANT MESSAGE FROM MED[employer]ARE PROVIDED AND EXPLAINED. CM CALLED AND SPOKE TO ANETA OF INPATIENT REHAB, DISCUSSED PT'S PROGRESS. CM SPOKE TO PT IN ROOM, PT REPORTS HE THINKS HE CAN TOLERATE THREE OR MORE HOURS OF THERAPY A DAY AND ALSO THINKS HE CAN STAND UP AND TAKE A STEP IF HE HAS HELP. CM NOTIFIED. ANETA OF [facility] IN[facility] WHO WILL ASK THERAPIST TO LOOK AT PT AGAIN. CM CALLED CASSIDY, CLINICAL LIAISON FOR [facility], , ASKED FOR ASSESSMENT FOR REHAB ADMISSION. CM FAXED REFERRAL TO THE [facility] VIA CASSIDY AT [phone]. CM WAITING ADMISSION DETERMINATION FROM [facility] IN[facility] AND [facility]. Alvarado Rutherford, CASE MANAGEMENT
[2017-09-12 12:10] VITALS: BP 108/56
--- NOTE | 2017-09-12 12:54 | NUR ---
Nutrition Follow Up: Pt is eating 13% meal avg on a full liquid diet. +BM 09/11/17. No new wt. Meds noted including Procalamine @ 30 ml/hr, MV. Labs noted. Rec continue advancing GIS[place]. RD following.
--- NOTE | 2017-09-12 14:25 | NUR ---
RESTS WITH EYES CLOSED. IV PATENT. NIETO INTACT. TELEMETRY SR. WILL CONT. PLAN OF CARE.
--- NOTE | 2017-09-12 15:29 | NUR ---
LEAVING FOR CT BY BED.
[2017-09-12 15:31] VITALS: BP 122/60
[2017-09-12 20:35] VITALS: BP 134/60
[2017-09-13 00:31] VITALS: BP 110/63
--- NOTE | 2017-09-13 02:36 | NUR ---
LYING IN BED WITH EYES CLOSED, WILL CONTINUE WITH PLAN OF CARE. 85 SR WITH PACS ON TELEMETRY
[2017-09-13 05:33] VITALS: BP 120/68
[2017-09-13 06:20] LABS: BASOPHILS 0.4 % (0-2); EOSINOPHILS 1.8 % (0-7); HEMATOCRIT 34.4 % (42.0-54.0); HEMOGLOBIN 11.6 g/dL (13.5-17.5); IMMATURE GRANULOCYTES 1.1 % (0-5); LYMPHOCYTES 11.5 % (15-50); MCH 31.6 pg (26.0-34.0); MCHC 33.7 g/dL (31.0-37.0); MCV 93.7 fL (80.0-100.0); MEAN PLATELET VOLUME 10.1 fL (7.4-10.4); MONOCYTES 10.1 % (2-11); NEUTROPHILS 75.1 % (40-80); PLATELET COUNT 390 10x3/uL (130-400); RBC 3.67 10x6/uL (4.20-6.10); RDW 15.7 % (11.5-14.5); WBC 14.1 10x3/uL (4.8-10.8)
[2017-09-13 06:48] LABS: CALC OSMOLALITY 272 mosm/kg (275-300); CALCIUM 8.7 mg/dL (8.5-10.1); CARBON DIOXIDE 29.8 mmol/L (21.0-32.0); CHLORIDE - SERUM 100 mmol/L (98-107); GLUCOSE 98 mg/dL (74-106); MAGNESIUM - SERUM 2.4 mg/dL (1.8-2.4); POTASSIUM - SERUM 3.8 mmol/L (3.5-5.1); SODIUM 135 mmol/L (136-145); UREA NITROGEN 20 mg/dL (7-18); eGFR NON AFRICAN AMERICAN 77 mL/min (90-120)
[2017-09-13 08:00] VITALS: BP 129/62
--- NOTE | 2017-09-13 09:46 | NUR ---
TELEMETRY SR. IV PATENT. FOLEUY INTACT. UP TO CHAIR WITH PT ASSIST. WILL CONT. PLAN OF CARE.
[2017-09-13 12:00] VITALS: BP 106/60
--- NOTE | 2017-09-13 12:11 | NUR ---
TRANSFER FROM INCUBATOR OPERATOR. VS WNL. LEFT GROIN STABLE WITH FEMSTOP INTACT. WILL MONITOR.
[2017-09-13 16:00] VITALS: BP 103/45
[2017-09-13 21:38] VITALS: BP 120/54
[2017-09-14 01:53] VITALS: BP 115/58
--- NOTE | 2017-09-14 02:26 | NUR ---
LYING IN BED, CALL LIGHT IN REACH. WILL CONTINUE WITH PLAN OF CARE. 76 SR ON TELEMETRY
[2017-09-14 04:16] VITALS: BP 134/65
[2017-09-14 06:10] LABS: BASOPHILS 0.5 % (0-2); EOSINOPHILS 2.5 % (0-7); IMMATURE GRANULOCYTES 1.2 % (0-5); LYMPHOCYTES 11.9 % (15-50); MCH 31.3 pg (26.0-34.0); MCHC 33.3 g/dL (31.0-37.0); MONOCYTES 10.3 % (2-11); NEUTROPHILS 73.6 % (40-80); PLATELET COUNT 397 10x3/uL (130-400); RBC 3.51 10x6/uL (4.20-6.10); RDW 15.6 % (11.5-14.5); WBC 12.6 10x3/uL (4.8-10.8)
[2017-09-14 06:26] LABS: ALKALINE PHOSPHATASE 88 U/L (46-116); ALT (SGPT) 56 U/L (10-68); BILIRUBIN - TOTAL 0.55 mg/dL (0.2-1.3); CALC OSMOLALITY 278 mosm/kg (275-300); CALCIUM 8.5 mg/dL (8.5-10.1); CHLORIDE - SERUM 104 mmol/L (98-107); GLUCOSE 95 mg/dL (74-106); POTASSIUM - SERUM 3.9 mmol/L (3.5-5.1); PROTEIN - SERUM 5.9 g/dL (6.4-8.2); SODIUM 138 mmol/L (136-145); UREA NITROGEN 21 mg/dL (7-18); eGFR NON AFRICAN AMERICAN 77 mL/min (90-120)
[2017-09-14 08:03] VITALS: BP 123/69
--- NOTE | 2017-09-14 10:11 | NUR ---
Nutrition Follow Up: Pt is eating 40% meal avg on a full liquid diet. +BM 09/13/17. Labs and meds reviewed. Rec continue current diet as tolerated. RD following.
--- NOTE | 2017-09-14 10:30 | NUR ---
UP TO CHAIR WITH PT ASSIST.
[2017-09-14] MEDS ORDERED: METOPROLOL TART50 MG PO (11:40)
[2017-09-14] MEDS ORDERED: PULMICORT0.5 MG/21 UPD (11:40)
[2017-09-14] MEDS ORDERED: XOPENEX 0.0.63 MG/3 UPD (11:40)
[2017-09-14] MEDS ORDERED: CORDARONE200 MG PO (11:40)
[2017-09-14 11:59] VITALS: BP 86/38
--- NOTE | 2017-09-14 13:20 | NUR ---
CVL, TELEMETRY AND EMILIA DCD. DC PLANS GIVEN TO [facility]. ESCORTED TO [facility] BY W/C.
--- NOTE | 2017-09-14 16:26 | NUR ---
LATE ENTRY: 09/14/17 @1011 PLACED A CALL TO PATIENT SON, DR ENMA BALTAZAR, WAITING FILTER BED PLACER BACK TO DISCUSS THE DENIAL TO IPR AND DISCHARGE TO THE [facility]. LEFT VOICEMAIL @9251 SPOKE WITH CASSIDY ABOUT DISCHARGE. EXPLAINED THAT HE DID NOT QUALIFY FOR OUR INPATIENT REHAB AND THE PATIENT WAS GOOD GOING TO THE [facility], BUT I WAS WAITING ON THE SON TO CALL BACK. SHE STATED SHE WOULD CALL BACK WITH A VAN TIME. @7922 CALL WAS PLACED TO DR BALTAZAR'S OFFICE ([phone]) AND EXPAINED THAT OUR INPATIENT REHAB HAD DENIED HIM SECONDARY TO NOT FEELING LIKE HE COULD TOLERATE 3 HOURS OF THERAPY, AND THAT I DISCUSSED GOING TO THE [facility] WITH HIM AND HE SAID HE WAS GOOD WITH IT IF YOU WERE GOOD WITH IT. HE STATED THAT WAS FINE. QUESTIONED ME TO THE NEXT STEP. EXPLAINED THAT IF HE WAS OK WITH DISCHARGING TO THE [facility], THAT WE WOULD TAKE CARE OF GETTING HIM THERE FROM HERE. HE STATED THAT WAS GREAT AND THE CALL WAS ENDED.
--- NOTE | 2017-09-19 10:07 | EC ---
PATIENT:DANITA BALTAZAR DATE OF SERVICE: 09/03/17 SEX: M MEDICAL RECORD: [id number] DATE OF : [birth year] LOCATION:D.M2 D.212 AGE OF PATIENT: 77 ADMISSION DATE: 09/03/17 REFERRING PHYSICIAN: INTERPRETING PHYSICIAN: ELVA DALEY MD ECHOCARDIOGRAM REPORT ECHO CHARGES 4 ECHO COMPLETE CLINICAL DIAGNOSIS: MURMUR, HX OF CABG/CAD ECHOCARDIOGRAPHIC MEASUREMENTS (adult normal given) AC root (d.<3.7cm) 3.1 cm LV Septum d (<1.2 cm> 1.1 cm Valve Excursion 1.5 cm LV Septum (systole) 1.3 cm Left Atria (s.<4.0cm> 4.3 cm LVPW d(<1.2cm) 1.1 cm RV (d.<2.3cm) 4.1 cm LVPW (sytole) 1.6 cm LV diastole(<5.6CM) 4.2 cm MV E-F(>70mm/sec) cm LV systole 3.0 cm LVOT Diameter 1.7 cm MV exc.(>10mm) 1.4 cm Est.ejection fraction (50-75%) % Pericardial Effusion N DOPPLER: LVIT cm/sec A 113 cm/sec E 101 cm/sec LA cm/sec RVSP 53 mmHg LVOT 110 cm/sec AOP1/2T m/s Asc. Ao 197 cm/sec RVOT 75 cm/sec RA cm/sec PA 105 cm/sec AV Gradient Peak 15.56mmHg AV Mean 7.21 mmHg AV Area 1.4 cm MV Gradient Peak 8.48 mmHg MV Mean 438 mmHg MV Area cm COMMENTS: Cloth Dye Range Operator: Megan JENNINGS Groundman/Lineman: 4 Dr. Daley TAPE# PACS DATE OF SERVICE: 09/04/2017 PROCEDURE: Transthoracic echocardiogram. FINDINGS: 1. The left ventricle has mild concentric left ventricular hypertrophy. Ejection fraction of 60%. No regional wall motion abnormalities. 2. The left atrium is mild to moderately enlarged. 3. The mitral valve has mitral annular calcification and thickening around the mitral valve. There is eccentric mitral regurgitation that is in moderate to ECHOCARDIOGRAM REPORT [id number] DANITA BALTAZAR moderately severe range. Inflow characteristics across the mitral valve suggestive of diastolic dysfunction. 4. The aortic valve is sclerotic and thickened without significant stenosis or regurgitation. 5. The tricuspid valve has moderate tricuspid regurgitation. Right ventricular systolic pressures are mildly to moderately elevated between 45-50 mmHg. 6. The pericardium is normal. 7. The pulmonic valve is normal. 8. The right ventricle is moderately dilated. 9. The right atrium is moderately dilated. CONCLUSIONS: The patient has evidence of hypertensive heart disease with moderate valvular insufficiencies of the mitral valve and tricuspid valve and moderate elevation in pulmonary systolic pressures. TRANSINT:[id number] Voice Confirmation ID: [id number] DOCUMENT ID: [id number] 09/17/2017 Edited to correct date of service, dmm. ELVA DALEY MD at 1007 CC: [id number] DICTATION DATE: 09/05/17 0756 PHARMACOLOGY ASSOCIATE: 09/05/17 0919 DIS IN 09/14/17 [facility] [address] [place] [address]
== END 2017-09-14 13:23 | DRG 329 ==
LOC: D.ER 07:53 → D.MS 11:45 → D.ICU 11:45 → D.M2 11:45 → D.ICU 18:09 → D.MS 09-05 18:03 → D.M2 09-07 05:12
PROVIDERS: Emergency Medicine; Surgery; ADMIT Family Medicine
PROC: 02HV33Z Insertion of Infusion Device into Superior Vena Cava, Percutaneous Approach (ICD-10-PCS; 2017-09-03)
PROC: 0D9670Z Drainage of Stomach with Drainage Device, Via Natural or Artificial Opening (ICD-10-PCS; principal; 2017-09-03 13:00)
PROC: 0DTH0ZZ Resection of Cecum, Open Approach (ICD-10-PCS; 2017-09-03 13:00)
PROC: 0T9B70Z Drainage of Bladder with Drainage Device, Via Natural or Artificial Opening (ICD-10-PCS; 2017-09-03 13:00)
PROC: 0D9670Z Drainage of Stomach with Drainage Device, Via Natural or Artificial Opening (ICD-10-PCS; 2017-09-10)
DX: K65.9 Peritonitis, unspecified (principal); K56.2 Volvulus; J15.6 Pneumonia due to other Gram-negative bacteria; N39.0 Urinary tract infection, site not specified; N17.9 Acute kidney failure, unspecified; I69.954 Hemiplegia and hemiparesis following unspecified cerebrovascular disease affecting left non-dominant side; J44.1 Chronic obstructive pulmonary disease with (acute) exacerbation; J44.0 Chronic obstructive pulmonary disease with (acute) lower respiratory infection; I50.30 Unspecified diastolic (congestive) heart failure; J98.11 Atelectasis; K56.7 Ileus, unspecified; D64.9 Anemia, unspecified; I25.10 Atherosclerotic heart disease of native coronary artery without angina pectoris; R00.0 Tachycardia, unspecified; I08.1 Rheumatic disorders of both mitral and tricuspid valves; I27.20 Pulmonary hypertension, unspecified; I48.91 Unspecified atrial fibrillation; I11.0 Hypertensive heart disease with heart failure; E87.6 Hypokalemia; Z95.1 Presence of aortocoronary bypass graft; Z87.891 Personal history of nicotine dependence

== ENCOUNTER 2017-11-24 02:15 | Inpatient (IN) | payer MEDICARE ==
[~2017-11-24] VITALS: Ht 182.9 cm; Wt 59.0 kg
[2017-11-24] VITALS (16 sets, daily range): BP systolic 92–122; BP diastolic 30–76; BMI 17.1
[~2017-11-24 02:15] MED LIST: CORDARONE200 MG PO; FLOMAX0.4 MG; FLOMAX0.4 MG PO; LANOXIN250 MCG PO; METOPROLOL TART50 MG PO; PLAVIX75 MG PO; PULMICORT0.5 MG/21 UPD; SUPER B COMPLE150 MG PO; URECHOLINE25 MG PO; XOPENEX 0.0.63 MG/3 UPD
[2017-11-24 03:21] LABS: BASOPHILS 0.1 % (0-2); EOSINOPHILS 0.1 % (0-7); HEMATOCRIT 44.5 % (42.0-54.0); HEMOGLOBIN 14.7 g/dL (13.5-17.5); IMMATURE GRANULOCYTES 0.3 % (0-5); LYMPHOCYTES 12.3 % (15-50); MCH 29.3 pg (26.0-34.0); MCV 88.8 fL (80.0-100.0); MEAN PLATELET VOLUME 9.2 fL (7.4-10.4); MONOCYTES 7.1 % (2-11); NEUTROPHILS 80.1 % (40-80); RBC 5.01 10x6/uL (4.20-6.10); WBC 18.3 10x3/uL (4.8-10.8)
[2017-11-24 03:28] LABS: PLATELET COUNT 256 10x3/uL (130-400)
[2017-11-24 03:36] LABS: ALKALINE PHOSPHATASE 72 U/L (46-116); ALT (SGPT) 58 U/L (10-68); BILIRUBIN - TOTAL 0.46 mg/dL (0.2-1.3); CALC OSMOLALITY 282 mosm/kg (275-300); CHLORIDE - SERUM 99 mmol/L (98-107); CREATININE - SERUM 2.3 mg/dL (0.6-1.3); GLUCOSE 106 mg/dL (74-106); PROTEIN - SERUM 8.2 g/dL (6.4-8.2); SODIUM 139 mmol/L (136-145); UREA NITROGEN 27 mg/dL (7-18); eGFR NON AFRICAN AMERICAN 29 mL/min (90-120)
[2017-11-24 03:40] LABS: COLOR YELLOW (YELLOW)
[2017-11-24 03:41] LABS: APPEARANCE CLEAR (CLEAR); BILIRUBIN NEGATIVE (NEGATIVE); GLUCOSE NEGATIVE (NEGATIVE); KETONE SMALL mg/dL (NEGATIVE); NITRITE NEGATIVE (NEGATIVE); PROTEIN NEGATIVE (NEGATIVE); UROBILINOGEN NORMAL (NORMAL)
[2017-11-24 03:55] LABS: CKMB 5.4 U/L (0.0-3.6); CREATINE KINASE 198 UL (21-232); DIGOXIN 2.35 ng/mL (0.90-2.00)
[2017-11-24 04:00] LABS: TROPONIN-I < 0.017 ng/mL (0.000-0.060)
[2017-11-24] MEDS ORDERED: SYNTHROID25 MCG PO (13:35)
[2017-11-24] MEDS ORDERED: ACIDOPHILUS LAC1 CAP PO (13:35)
[2017-11-24] MEDS ORDERED: ULTRACET TABLET1 TAB PO (13:36)
[2017-11-24] MEDS ORDERED: IPRAT-ALBUT 0.5-3 ML UPD (13:36)
[2017-11-24 18:54] LABS: ANION GAP 15.7 mmol/L (8-16); CALCIUM 9.2 mg/dL (8.5-10.1); CREATININE - SERUM 2.8 mg/dL (0.6-1.3); POTASSIUM - SERUM 3.7 mmol/L (3.5-5.1)
[2017-11-25] VITALS (9 sets, daily range): BP systolic 103–143; BP diastolic 50–80; Ht 182.9 cm; Wt 59.0 kg
[2017-11-25 03:42] LABS: BASOPHILS 0.2 % (0-2); EOSINOPHILS 0.1 % (0-7); IMMATURE GRANULOCYTES 0.2 % (0-5); LYMPHOCYTES 10.9 % (15-50); MCH 28.2 pg (26.0-34.0); MCHC 32.1 g/dL (31.0-37.0); MCV 87.9 fL (80.0-100.0); MONOCYTES 9.3 % (2-11); NEUTROPHILS 79.3 % (40-80); RDW 15.3 % (11.5-14.5)
[2017-11-25 03:45] LABS: HEMATOCRIT 34.9 % (42.0-54.0); HEMOGLOBIN 11.2 g/dL (13.5-17.5); PLATELET COUNT 196 10x3/uL (130-400); RBC 3.97 10x6/uL (4.20-6.10); WBC 12.6 10x3/uL (4.8-10.8)
[2017-11-25 03:55] LABS: ANION GAP 13.2 mmol/L (8-16); BILIRUBIN - TOTAL 0.36 mg/dL (0.2-1.3); CALCIUM 8.9 mg/dL (8.5-10.1); CARBON DIOXIDE 26.2 mmol/L (21.0-32.0); CREATININE - SERUM 2.3 mg/dL (0.6-1.3); MAGNESIUM - SERUM 1.8 mg/dL (1.8-2.4); PHOSPHOROUS 3.1 mg/dL (2.5-4.9); POTASSIUM - SERUM 3.4 mmol/L (3.5-5.1)
[2017-11-25 04:00] LABS: PROTEIN - SERUM 6.1 g/dL (6.4-8.2)
[2017-11-26] VITALS: BP 123/46
[2017-11-26 04:00] VITALS: BP 132/55
[2017-11-26 04:24] LABS: BASOPHILS 0.1 % (0-2); EOSINOPHILS 0.7 % (0-7); HEMATOCRIT 31.2 % (42.0-54.0); HEMOGLOBIN 10.3 g/dL (13.5-17.5); IMMATURE GRANULOCYTES 0.3 % (0-5); LYMPHOCYTES 11.6 % (15-50); MCH 28.8 pg (26.0-34.0); MCV 87.2 fL (80.0-100.0); MEAN PLATELET VOLUME 8.4 fL (7.4-10.4); MONOCYTES 9.9 % (2-11); NEUTROPHILS 77.4 % (40-80); PLATELET COUNT 200 10x3/uL (130-400); RBC 3.58 10x6/uL (4.20-6.10); RDW 15.1 % (11.5-14.5); WBC 11.7 10x3/uL (4.8-10.8)
[2017-11-26 04:45] LABS: ALBUMIN 2.8 g/dL (3.4-5.0); ANION GAP 11.5 mmol/L (8-16); BILIRUBIN - TOTAL 0.65 mg/dL (0.2-1.3); CALCIUM 8.3 mg/dL (8.5-10.1); CARBON DIOXIDE 25.8 mmol/L (21.0-32.0); CREATININE - SERUM 1.4 mg/dL (0.6-1.3); DIGOXIN 0.54 ng/mL (0.90-2.00); MAGNESIUM - SERUM 1.4 mg/dL (1.8-2.4); PHOSPHOROUS 1.7 mg/dL (2.5-4.9); POTASSIUM - SERUM 3.3 mmol/L (3.5-5.1)
[2017-11-26 08:51] VITALS: BP 148/58
[2017-11-26 12:20] VITALS: BP 135/53
[2017-11-26 16:03] VITALS: BP 165/75
[2017-11-26 20:00] VITALS: BP 138/63
[2017-11-27] VITALS: BP 133/61
[2017-11-27 04:00] VITALS: BP 125/81
[2017-11-27 06:05] LABS: BASOPHILS 0.2 % (0-2); EOSINOPHILS 2.1 % (0-7); HEMATOCRIT 32.5 % (42.0-54.0); HEMOGLOBIN 10.7 g/dL (13.5-17.5); IMMATURE GRANULOCYTES 0.2 % (0-5); LYMPHOCYTES 14.1 % (15-50); MCH 28.7 pg (26.0-34.0); MCHC 32.9 g/dL (31.0-37.0); MCV 87.1 fL (80.0-100.0); MEAN PLATELET VOLUME 9.3 fL (7.4-10.4); MONOCYTES 9.1 % (2-11); NEUTROPHILS 74.3 % (40-80); RBC 3.73 10x6/uL (4.20-6.10); RDW 15.2 % (11.5-14.5); WBC 9.8 10x3/uL (4.8-10.8)
[2017-11-27 06:20] LABS: PLATELET COUNT 254 10x3/uL (130-400)
[2017-11-27 06:33] LABS: ALBUMIN 2.8 g/dL (3.4-5.0); ANION GAP 10.7 mmol/L (8-16); BILIRUBIN - TOTAL 0.62 mg/dL (0.2-1.3); CARBON DIOXIDE 27.5 mmol/L (21.0-32.0); CREATININE - SERUM 1.1 mg/dL (0.6-1.3); MAGNESIUM - SERUM 1.3 mg/dL (1.8-2.4); POTASSIUM - SERUM 3.2 mmol/L (3.5-5.1); PROTEIN - SERUM 6.1 g/dL (6.4-8.2)
[2017-11-27 06:35] LABS: PHOSPHOROUS 1.4 mg/dL (2.5-4.9)
[2017-11-27 09:56] VITALS: BP 144/60
[2017-11-27 12:47] VITALS: BP 124/50
[2017-11-27 16:13] VITALS: BP 138/60
[2017-11-27 20:00] VITALS: BP 127/58
[2017-11-28] VITALS: BP 115/63
[2017-11-28 05:53] VITALS: BP 107/70
[2017-11-28 08:07] VITALS: BP 96/56
[2017-11-28 12:43] VITALS: BP 134/68
[2017-11-28 16:08] VITALS: BP 128/57
[2017-11-28 20:00] VITALS: BP 136/75
[2017-11-29] VITALS: BP 145/80
[2017-11-29 04:00] VITALS: BP 120/60
[2017-11-29 05:20] LABS: BASOPHILS 0.2 % (0-2); EOSINOPHILS 1.7 % (0-7); HEMATOCRIT 36.6 % (42.0-54.0); HEMOGLOBIN 12.1 g/dL (13.5-17.5); IMMATURE GRANULOCYTES 0.3 % (0-5); LYMPHOCYTES 13.2 % (15-50); MCH 28.3 pg (26.0-34.0); MCHC 33.1 g/dL (31.0-37.0); MCV 85.7 fL (80.0-100.0); MONOCYTES 10.4 % (2-11); NEUTROPHILS 74.2 % (40-80); PLATELET COUNT 281 10x3/uL (130-400); RBC 4.27 10x6/uL (4.20-6.10); RDW 15.3 % (11.5-14.5); WBC 8.8 10x3/uL (4.8-10.8)
[2017-11-29 05:38] LABS: CALC OSMOLALITY 276 mosm/kg (275-300); CALCIUM 8.8 mg/dL (8.5-10.1); CHLORIDE - SERUM 99 mmol/L (98-107); GLUCOSE 109 mg/dL (74-106); MAGNESIUM - SERUM 1.5 mg/dL (1.8-2.4); POTASSIUM - SERUM 3.3 mmol/L (3.5-5.1); SODIUM 139 mmol/L (136-145); eGFR NON AFRICAN AMERICAN 77 mL/min (90-120)
[2017-11-29 05:55] LABS: UREA NITROGEN 6 mg/dL (7-18)
[2017-11-29 08:35] VITALS: BP 148/69
[2017-11-29] MEDS ORDERED: AUGMENTIN 875-11 TAB PO (10:54)
[2017-11-29 13:48] VITALS: BP 148/74
== END 2017-11-29 15:32 | DRG 872 ==
LOC: D.ER 02:15 → D.ICU 08:10 → D.MS 08:10
PROVIDERS: Family Medicine; Surgery
DX: A41.9 Sepsis, unspecified organism (principal); J44.1 Chronic obstructive pulmonary disease with (acute) exacerbation; N17.9 Acute kidney failure, unspecified; G81.90 Hemiplegia, unspecified affecting unspecified side; I25.10 Atherosclerotic heart disease of native coronary artery without angina pectoris; I73.9 Peripheral vascular disease, unspecified; I48.91 Unspecified atrial fibrillation; N18.9 Chronic kidney disease, unspecified; K59.00 Constipation, unspecified